=== PATIENT | male | born 1965 | race American Indian/Alaskan Native ===

== ENCOUNTER 2023-02-26 08:37 | Outpatient (AMB) | payer OTHER, SELFPAY ==
[2023-02-26 09:01] VITALS: BP 128/74; PULSE 77; RESP 13; TEMP 36.4; O2SAT 97; BMI 33.7
--- NOTE | 2023-02-26 09:01 | A.OFFPC_ITS ---
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 Accompanied by: Self / Same As Patient Allergies aspirin Adverse Reaction (Severe, Verified 02/26/23 09:13) Anaphylaxis Penicillins Adverse Reaction (Severe, Verified 02/26/23 09:13) Anaphylaxis Medication List - Last Reconciled 02/26/23 by Nayeli Petersen CNP amlodipine 10 mg PO DAILY docusate sodium 100 mg PO BID fluocinonide 0.05% topical fluvoxamine 100 mg PO BEDTIME glipizide ER mg PO BID hydrocortisone 2.5% appl topical ketoconazole 2% topical lisinopril 5 mg PO DAILY lorazepam 0.5 mg PO BID PRN metformin ER 1,000 mg PO BID multivitamin 1 tab PO DAILY olanzapine 20 mg PO BEDTIME ondansetron HCl 4 - 8 mg PO Q8H PRN oxybutynin chloride ER 10 mg PO DAILY psyllium husk (aspartame) 3.4 gram (Metamucil Fiber Singles) 1 packet PO DAILY PRN tamsulosin mg PO DAILY Tobacco use date assessed: 02/26/23 Dental Screening Dental Screen Date: 02/26/23 Did you have a dental visit in the last 12 months?: Yes Did you have a dental problem in the last 6 months where you did not have access to dental care?: No Was dental information given to patient?: Patient has dentist HPI HPI Comments History of Present Illness Details New patient Prior PCP:?[facility], Dr. Tyson Last office visit/CPE: About 2-3 months ago Last routine blood work including A1c: 2-3 months ago. He notes that his A1c was 6% Acute issue(s): Hypertension -He is on Amlodipine 10 mg daily and lis inopril 5mg daily Asthma -No treatment in the past 4-5 months Diabetes -He is on metformin 1000 mg twice daily and glipizide 10 mg twice daily Anxiety, schizophrenia -He is on fluvoxamine 100 mg daily at be dtime, lorazepoam 0.5 mg twice daily as needed, and olanzapine 20 mg daily at bedtime -He is followed by Dr. Yoly Munoz, [facility]. He is seen every 2-3 months. He also follows a therapist, telemedicine, once weekly BPH -He is on tamsulosin 0.4 mg daily Urinary incontinence (occasional) -He is on oxybutynin 10 mg daily Constipation -He is on Metamucil daily. He notes that he has never been followed by Gastroenterology Psoriasis and exzema (facial) -He is on topical hydrocortisone and ket oconazole He reports intermittent moderate sharp pain to his suprapubic region for the past 2 months. He notes associated constipation. Note vomiting or diarrhea. No recent nausea. PMHx: Diabetes, hypertension, hyperlipidemia, COPD, asthma, IBS, constipation, urinary incontinence psoriasis, eczema, anxiety, and schizophrenia SurgHx; FHx: None SocHx: Nonsmoker. Drinks alcohol occasionally. No recreational drugs. 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 1. Little interest or pleasure in doing things: not at all 2. Feeling down, depressed, or hopeless: several days 3. Trouble falling or staying asleep, or sleeping too much: several days 4. Feeling tired or having little energy: several days 5. Poor appetite or overeating: several days 6. Feeling bad about yourself - or that you are a failure or have let yourself or your family down: not at all 7. Trouble concentrating on things, such as reading the newspaper or watching television: not at all 8. Moving or speaking so slowly that other people could have noticed. Or the opposite - being so fidgety or restless that you have been moving around a lot more than usual: not at all 9. Thoughts that you would be better off or of hurting yourself in some way: not at all Total score: 4 Depression Screening Interpretation: Negative Depression Screening Done: Yes 85816 - PHQ-9 Billing: Yes Source: Developed by Drs. Jorge Caraballo, Izabela Bejarano, Biju Vaughn and colleagues, with an educational saba from [employer]. AUDIT C Alcohol Use Questionnaire (AUDIT-C) 1. How often do you have a drink containing alcohol?: 2-4 times a month 2. How many drinks containing alcohol do you have on a typical day when you are drinking?: 1 or 2 3. How often do you have six or more drinks on one occasion?: Never Total Score: 2 KARLO-7 AMB Questionnaire KARLO-7 Date KARLO - 7 assessed: 02/26/23 Feeling nervous, anxious, or on edge: 1 = Several days Not being able to stop or control worryin = Several days Worrying too much about different things: 0 = Not at all Trouble relaxin = Not at all Being so restless that it is hard to sit still: 0 = Not at all Becoming easily annoyed or irritable: 0 = Not at all Feeling afraid as if something awful might happen: 0 = Not at all Total KARLO-7 score (0-4 normal; 5-9 mild; 10-14 moderate; 15-21 severe): 2 Source: Developed by Drs. Jorge Caraballo, Izabela Bejarano, Biju Vaughn and colleagues, with an educational saba from [employer]. KARLO-7 Assessment Billing KARLO-7 Assessment Tool: KARLO-7 Assessment 75715 ACT Questionnaire In the past 4 weeks, how much of the time did your asthma keep you from getting as much done at work, school or at home?: A little of the time During the past 4 weeks, how often have you had shortness of breath?: Not at all During the past 4 weeks, how often did your asthma symptoms wake you up at night or earlier than usual in the morning?: Not at all During the past 4 weeks, how often have you had to use your rescue inhaler or nebulizer medication?: Not at all How would you rate your asthma control during the past 4 weeks?: Well controlled ACT Interpretation: Positive Score: 23 Review of Systems Const Details: Const Denies chills, Denies fatigue, Denies fever(s), Denies headache(s) and Denies weakness ENT Denies dizziness and Denies headache(s) Card Denies chest pain, Denies lightheadedness, Denies dyspnea and Denies other (Palpitations) Resp Denies cough, Denies dyspnea, Denies wheezing and Denies other ( shortness of breath) GI Reports as per HPI Denies hematuria and Denies dysuria Musc Denies abnormal gait, Denies myalgias, Denies arthralgias, Denies numbness and Denies tingling Skin/Breast Denies rash, Denies unusual bruising and Denies wounds Neuro Denies abnormal gait, Denies dizziness, Denies headache(s), Denies memory loss, Denies numbness, Denies Sensory deficit (Neuro), Denies tingling and Denies weakness Psych Denies anxiety, Denies depression, Denies memory loss Endo Denies cold intolerance, Denies fatigue, Denies heat intolerance, Denies polydipsia and Denies polyuria Aller/Immun Denies wheezing Physical exam (Primary Care) Vital Signs: Last Vital Signs Temp 97.6 F 02/26/23 09:01 Pulse 77 02/26/23 09:01 Resp 13 02/26/23 09:01 BP 128/74 02/26/23 09:01 Pulse Ox 97 02/26/23 09:01 Oxygen Delivery Method Room Air 02/26/23 09:01 BMI result Body Mass Index 33.7 Tobacco/Smoking Status: Tobacco use Status Tobacco use date assessed 02/26/23 02/26/23 09:11 Patient Tobacco Use Status Former Tobacco user 02/26/23 09:11 e-Cigarette/Vaping Use Never Used 02/26/23 09:11 PHQ-9: PHQ-9 Score PHQ-9: Total score 4 02/27/23 17:05 Depression Screening Interpretation: Negative Const Other: General: no acute distress and well developed Nutritional Appearance: well nourished Orientation/consciousness: patient oriented x3 HENMT Head: Yes normocephalic and Yes atraumatic Eyes General: appearance normal, both eyes and all related structures Pupils: Equal, round and reactive pupils present EOM: EOMs intact bilaterally Resp Effort & Inspection: normal respiratory effort Auscultation: clear to auscultation bilaterally Cardio Rate: regular rate Rhythm: regular rhythm Heart sounds: S1 normal heart sound present, S2 normal heart sound present, no gallops, no murmurs and no rubs GI Palpation (GI): No Abdominal aortic bruit present, Soft to palpation, tender suprapubic region, nondistended, No hepatosplenomegaly present and No Rebound tenderness present Auscultation: normal bowel sounds General: Yes no CVA tenderness Back/Spine/Pelvis Back: no CVA tenderness Cervical Spine: cervical ROM normal and No Cervical spine tenderness Thoracic/Lumbar Spine: thoraco-lumbar ROM normal, No pain with thoraco-lumbar ROM, No thoracic spinal tenderness and No lumbar spinal tenderness Extrem General: Yes normal to inspection, No edema and No calf tenderness Skin General: warm and dry. Normal skin color. Normal skin turgor Lesions: Skin tags and moles to face Rashes: no rashes Trauma: no lacerations or abrasions Wounds: no wounds Nails: normal Neuro General: patient oriented x3, gait normal and no focal neuro deficit Cranial nerves: Yes Equal, round and reactive pupils present Cognition (Neuro): normal cognition Gait exam (Neuro): Normal gait present Sensory Exam: No Sensory deficit (Neuro) Psych Appearance: grossly normal Affect: normal affect Attitude: cooperative Thought process: Normal thought process present Results AMB Hemoglobin A1c AMB Hemoglobin A1c 6.0 % Last Edit by Taylor Pineda MA on 02/26/23 09:28 Results Reviewed Results Reviewed: Laboratory Last Values Hgb A1c (Clinic) 6.0 % (4.0-6.0) 02/26/23 09:27 Assessment and Plan Assessment & Plan (1) High blood pressure: Code(s): I10 - Essential (primary) hypertension Plan: Blood pressure is 128/74, within goal of less than 130/80 Continue take lisinopril and amlodipine as prescribed Low-sodium diet encouraged Follow-up in 1 month for an extended physical exam Return sooner with symptoms or concerns Verbalized understanding and agreed with treatment plan (2) Diabetes: Code(s): E11.9 - Type 2 diabetes mellitus without complications Plan: A1c 6.0% today, within goal of less than 7.0% Continue to take metformin and glipizide as prescribed ADA diet and routine exercise encouraged Will recheck A1c in 3 months Verbalized understanding and agreed with treatment plan (3) High cholesterol: Code(s): E78.00 - Pure hypercholesterolemia, unspecified Plan: He notes that he had routine blood work done 2-3 months ago from his former PCP Will request health records, review labs, and make changes as needed Verbalized understanding and agreed with the plan (4) Anxiety: Code(s): F41.9 - Anxiety disorder, unspecified Plan: KARLO-7 and PHQ-9 scores are normal He reports controlled anxiety and schizophrenia symptoms on current treatment regimen Continue to take fluvoxamine, lorazepam, and olanzapine as prescribed Continue follow-up with psychiatrist and therapist as planned Return with worsening or new symptoms Verbalized understanding and agreed with treatment plan (5) Schizophrenia: Code(s): F20.9 - Schizophrenia, unspecified Plan: As above (6) COPD (chronic obstructive pulmonary disease): Code(s): J44.9 - Chronic obstructive pulmonary disease, unspecified Plan: No acute symptoms Follow-up with symptoms or concerns Verbalized understanding and agreed with the plan (7) Asthma: Code(s): J45.909 - Unspecified asthma, uncomplicated Plan: Well-controlled asthma No acute symptoms Follow-up with symptoms or concerns Verbalized understanding and agreed with plan (8) Abdominal pain: Code(s): R10.9 - Unspecified abdominal pain Plan: Reports intermittent moderate sharp pain to his suprapubic region for the past 2 months. He notes associated constipation History of IBS Suprapubic tenderness to palpation Currently on Metamucil Never been followed by Gastroenterology Continue with current treatment regimen Healthy diet including, fruits, vegetables, and fiber encouraged Referred to Gastroenterology Return with worsening or new symptoms Verbalized understanding and agreed with treatment plan (9) Chronic constipation: Code(s): K59.09 - Other constipation Plan: As above (10) IBS (irritable bowel syndrome): Code(s): K58.9 - Irritable bowel syndrome without diarrhea Plan: As above (11) Eczema: Code(s): L30.9 - Dermatitis, unspecified Plan: Reports facial eczema and psoriasis No current rash Continue to use topical hydrocortisone and ketoconazole as prescribed Follow-up with signs and symptoms or concerns Verbalized understanding and agreed with plan (12) Psoriasis: Code(s): L40.9 - Psoriasis, unspecified Plan: As above (13) BPH (benign prostatic hyperplasia): Code(s): N40.0 - Benign prostatic hyperplasia without lower urinary tract symptoms Plan: Reports BPH with associated in term urinary incontinence Continue to take tamsulosin and oxybutynin as prescribed Follow-up with worsening or new symptoms Verbalized understanding and agreed with treatment plan (14) Urinary incontinence: Code(s): R32 - Unspecified urinary incontinence Plan: As above Orders: Referrals Gastroenterology Referral R10.9 - Unspecified abdominal pain, K59.09 - Other constipation, K58.9 - Irritable bowel syndrome without diarrhea Medications: New blood sugar diagnostic (FreeStyle Lite Strips) As directed TID 100 ea 4RF diabetes blood-glucose meter (FreeStyle Lite Meter kit) As directed 1 ea 0RF diabetes lancets (FreeStyle Lancets) As directed 100 ea 4RF glipizide ER 10 mg PO BID Coding Level of Care Code New Pt Level 4 (05724) Diagnoses High blood pressure I10 Diabetes E11.9 High cholesterol E78.00 Anxiety F41.9 Schizophrenia F20.9 COPD (chronic obstructive pulmonary disease) J44.9 Asthma J45.909 Abdominal pain R10.9 Chronic constipation K59.09 IBS (irritable bowel syndrome) K58.9 Eczema L30.9 Psoriasis L40.9 BPH (benign prostatic hyperplasia) N40.0 Urinary incontinence R32 Additional Codes KARLO-7 Assessment Billing - KARLO-7 Assessment Tool: KARLO-7 Assessment [id number] ([id number])
== END 2023-02-26 09:51 | disposition home or self-care (01) ==
PROVIDERS: PCP Nurse Practitioner Family; Visit Provider Nurse Practitioner Family
DX: I10 Essential (primary) hypertension (principal); E11.620 Type 2 diabetes mellitus with diabetic dermatitis; F20.9 Schizophrenia, unspecified; J44.9 Chronic obstructive pulmonary disease, unspecified; E78.00 Pure hypercholesterolemia, unspecified; F41.9 Anxiety disorder, unspecified; L30.9 Dermatitis, unspecified; J45.909 Unspecified asthma, uncomplicated; R10.9 Unspecified abdominal pain; K59.09 Other constipation; K58.9 Irritable bowel syndrome, unspecified; L40.9 Psoriasis, unspecified
CPT/HCPCS: 83036; 99204

== ENCOUNTER 2023-04-11 10:08 | Outpatient (AMB) | payer OTHER, SELFPAY ==
--- NOTE | 2023-04-11 10:10 | A.OFFPC_ITS ---
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: No Accompanied by: Self / Same As Patient Allergies aspirin Adverse Reaction (Severe, Verified 04/11/23 10:27) Anaphylaxis Penicillins Adverse Reaction (Severe, Verified 04/11/23 10:27) Anaphylaxis Medication List - Last Reconciled 04/11/23 by Nayeli Petersen CNP amlodipine 10 mg PO DAILY blood sugar diagnostic (FreeStyle Lite Strips) As directed TID blood-glucose meter (FreeStyle Lite Meter kit) As directed docusate sodium 100 mg PO BID fluocinonide 0.05% topical fluvoxamine 100 mg PO BEDTIME glipizide ER 10 mg PO BID hydrocortisone 2.5% appl topical ketoconazole 2% topical lancets (FreeStyle Lancets) As directed lisinopril 5 mg PO DAILY lorazepam 0.5 mg PO BID PRN metformin ER 1,000 mg PO BID multivitamin 1 tab PO DAILY olanzapine 20 mg PO BEDTIME ondansetron HCl 4 - 8 mg PO Q8H PRN oxybutynin chloride ER 10 mg PO DAILY psyllium husk (aspartame) 3.4 gram (Metamucil Fiber Singles) 1 packet PO DAILY PRN tamsulosin mg PO DAILY Tobacco use date assessed: 04/11/23 Dental Screening Dental Screen Date: 04/11/23 Did you have a dental visit in the last 12 months?: Yes Did you have a dental problem in the last 6 months where you did not have access to dental care?: No Was dental information given to patient?: Patient has dentist HPI HPI Comments History of Present Illness Details 57-year-old male presents for an extende d physical exam He has past medical history significant for Diabetes, hypertension, hyperlipidemia, COPD, asthma, IBS, constipation, urinary incontinence psoriasis, eczema, anxiety, and schizophrenia He admits to taking his medications as prescribed without adverse reactions He notes that he had his 4th monthly chemotherapy for skin cancer that was removed from his left forearm last last summer He reports burning and frequent urination, and cloudy urine for the past 1 month. No hematuria or discharge with urination. No abdominal pain He states that he is followed by [facility], last visit was about a month ago Recent lab results reviewed from [facility]. CBC, CMP, and TSH/T4 levels on 04/08/2023 were unremarkable. Last lipid and PSA levels were done almost a year ago Last colonoscopy was in June 2017 per [facility] medical record: Ascending polyp, pedunculated sigmoid polyp, hyperplastic appearing rectal polyp, sigmoid diverticulosis and hemorrhoids, recommended repeat in 3 years. He notes he is up-to-date on the Shingrix vaccines He has not had the flu vaccine. 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 1. Little interest or pleasure in doing things: several days 2. Feeling down, depressed, or hopeless: several days 3. Trouble falling or staying asleep, or sleeping too much: several days 4. Feeling tired or having little energy: more than half the days 5. Poor appetite or overeating: several days 6. Feeling bad about yourself - or that you are a failure or have let yourself or your family down: not at all 7. Trouble concentrating on things, such as reading the newspaper or watching television: several days 8. Moving or speaking so slowly that other people could have noticed. Or the opposite - being so fidgety or restless that you have been moving around a lot more than usual: several days 9. Thoughts that you would be better off or of hurting yourself in some way: not at all Total score: 8 Depression Screening Interpretation: Positive Depression Screening Done: Yes 26534 - PHQ-9 Billing: Yes Source: Developed by Drs. Jorge Caraballo, Izabela Bejarano, Biju Vaughn and colleagues, with an educational saba from [employer]. KARLO-7 AMB Questionnaire KARLO-7 Date KARLO - 7 assessed: 04/11/23 Feeling nervous, anxious, or on edge: 2 = More than half the days Not being able to stop or control worryin = Several days Worrying too much about different things: 1 = Several days Trouble relaxin = Several days Being so restless that it is hard to sit still: 1 = Several days Becoming easily annoyed or irritable: 2 = More than half the days Feeling afraid as if something awful might happen: 1 = Several days Total KARLO-7 score (0-4 normal; 5-9 mild; 10-14 moderate; 15-21 severe): 9 Source: Developed by Drs. Jorge Caraballo, Izabela Bejarano, Biju Vaughn and colleagues, with an educational saba from [employer]. KARLO-7 Assessment Billing KARLO-7 Assessment Tool: KARLO-7 Assessment 80045 ACT Questionnaire In the past 4 weeks, how much of the time did your asthma keep you from getting as much done at work, school or at home?: None of the time During the past 4 weeks, how often have you had shortness of breath?: 3-6 times a week During the past 4 weeks, how often did your asthma symptoms wake you up at night or earlier than usual in the morning?: Not at all During the past 4 weeks, how often have you had to use your rescue inhaler or nebulizer medication?: Not at all How would you rate your asthma control during the past 4 weeks?: Well controlled ACT Interpretation: Positive Score: 22 Review of Systems Const Details: Denies chills, Denies fatigue, Denies fever(s), Denies headache(s) and Denies weakness HEENT Denies change in vision, Denies dizziness, Denies headache(s), Denies hearing loss, Denies nasal congestion, Denies sinus pain, Denies sinus pressure and Denies sore throat Card Denies chest pain, Denies lightheadedness, Denies dyspnea and Denies other (palpitations) Resp Denies cough, Denies dyspnea and Denies wheezing GI Denies abdominal pain, Denies melena, Denies hematochezia, Denies change in bowel habits, Denies dyspepsia and Denies nausea Reports as per HPI Musc Denies abnormal gait, Denies myalgias, Denies arthralgias, Denies numbness and Denies tingling Skin/Breast Denies rash, Denies unusual bruising and Denies wounds Neuro Denies abnormal gait, Denies dizziness, Denies headache(s), Denies memory loss, Denies numbness, Denies Sensory deficit (Neuro), Denies tingling and Denies weakness Psych Denies anxiety, Denies depression and Denies memory loss Endo Denies cold intolerance, Denies fatigue, Denies heat intolerance, Denies polydipsia and Denies polyuria Babatunde/Lymph Denies easy bleeding and Denies easy bruising Aller/Immun Denies wheezing Physical exam (Primary Care) Vital Signs: Last Vital Signs Temp 97.3 F 04/11/23 10:11 Pulse 83 04/11/23 10:11 Resp 13 04/11/23 10:11 BP 112/80 04/11/23 10:11 Pulse Ox 96 04/11/23 10:11 Oxygen Delivery Method Room Air 04/11/23 10:11 BMI result Body Mass Index 32.4 Tobacco/Smoking Status: Tobacco use Status Tobacco use date assessed 04/11/23 04/11/23 10:23 Patient Tobacco Use Status Former Tobacco user 04/11/23 10:23 e-Cigarette/Vaping Use Never Used 04/11/23 10:23 PHQ-9: PHQ-9 Score PHQ-9: Total score 8 04/11/23 10:23 Depression Screening Interpretation: Positive Const Other: General: no acute distress, well developed, alert and awake Nutritional Appearance: well nourished Orientation/consciousness: patient oriented x3 HENMT Head: Yes normocephalic and Yes atraumatic Ears: hearing grossly normal bilaterally and TM's normal bilaterally General nose exam: Normal external nose present and Normal nares present Mouth: Normal oral and palatal mucosa present and moist mucous membranes Teeth and gingiva: dentition normal Throat: Yes oropharynx normal Eyes Pupils: Equal, round and reactive pupils present and Pupil accommodation reflex normal EOM: EOMs intact bilaterally Neck Neck: Yes normal visual inspection, Yes no lymphadenopathy and Yes trachea midline Thyroid: Thyroid normal Carotids: no bruits Lymphatic: no lymphadenopathy noted Chest Chest palpation & inspection: normal inspection of the chest Resp Effort & Inspection: normal respiratory effort Auscultation: clear to auscultation bilaterally Cardio Rate: regular rate Rhythm: regular rhythm Heart sounds: S1 normal heart sound present, S2 normal heart sound present, no gallops, no murmurs and no rubs Bruits: no abdominal aortic bruits and no carotid bruits GI Palpation (GI): No Abdominal aortic bruit present, Soft to palpation, nontender, No hepatosplenomegaly present and No Rebound tenderness present Auscultation: normal bowel sounds General: Yes no CVA tenderness Back/Spine/Pelvis Back: no CVA tenderness Cervical Spine: cervical ROM normal and No Cervical spine tenderness Thoracic/Lumbar Spine: thoraco-lumbar ROM normal, No pain with thoraco-lumbar ROM, No thoracic spinal tenderness and No lumbar spinal tenderness Skin General: warm and dry. Normal skin color. Normal skin turgor Lesions: Keloids to upper anterior and posterior torso Rashes: no rashes Trauma: no lacerations or abrasions Wounds: no wounds Nails: normal Neuro General: patient oriented x3, gait normal and CN's II-XI intact bilaterally Cranial nerves: Yes Equal, round and reactive pupils present Cognition (Neuro): normal cognition Gait exam (Neuro): Normal gait present Motor exam (neuro): 5/5 motor strength present throughout Sensory Exam: No Sensory deficit (Neuro) Deep tendon reflexes (DTR's): Right patellar reflex intensity grade: 2+ and Left patellar reflex intensity grade: 2+ Extrem General: Yes normal to inspection, No edema and No calf tenderness Psych Appearance: grossly normal Affect: normal affect Attitude: cooperative Thought process: Normal thought process present Results AMB Urinalysis Dipstick UR Leukocytes Large Last Edit by Taylor Pineda MA on 04/11/23 11:10 UR Nitrite Negative Last Edit by Taylor Pineda MA on 04/11/23 11:10 UR Urobilinogen Normal Last Edit by Taylor Pineda MA on 04/11/23 11:10 UR Protein Trace Last Edit by Taylor Pineda MA on 04/11/23 11:10 UR Ph 7.5 Last Edit by Taylor Pineda MA on 04/11/23 11:10 UR Blood Negative Last Edit by Taylor Pineda MA on 04/11/23 11:10 UR Specific [place] 1.015 Last Edit by Taylor Pineda MA on 04/11/23 11:1 0 UR Ketone Negative Last Edit by Taylor Pineda MA on 04/11/23 11:10 UR Bilirubin Negative Last Edit by Taylor Pineda MA on 04/11/23 11:10 UR Glucose Negative Last Edit by Taylor Pineda MA on 04/11/23 11:10 Assessment and Plan Assessment & Plan (1) Normal physical examination, routine: Code(s): Z00.00 - Encounter for general adult medical examination without abnormal findings Plan: No significant physical restrictions or limitations noted Continue current treatment regimen Will check lipid panel and PSA levels. Advised to fast for 10-12 hours, may drink water only and get blood work done a few days before his next visit Follow-up with Urology, Oncology, Dermatology, and Psychiatry as planned Follow-up in 2 months for diabetes, hypertension, labs review Return sooner with symptoms or concerns Verbalized understanding and agreed with treatment plan (2) UTI (urinary tract infection): Code(s): N39.0 - Urinary tract infection, site not specified Plan: Burning and frequent urination, and cloudy urine x 1 month No abdominal pain or CVA tenderness Urine dip is positive for leukocytes, no nitrites or rbc Likely UTI Nitrofurantoin and Pyridium as prescribed Adequate hydration encouraged Will send urine sample to the lab for culture/sensitivity Follow-up with worsening or new symptoms Verbalized understanding and agreed with treatment plan (3) Dysuria: Code(s): R30.0 - Dysuria Plan: As above (4) Urinary frequency: Code(s): R35.0 - Frequency of micturition Plan: As above Urinary frequency may also be attributed to BPH Tamsulosin as prescribed (5) Colon cancer screening: Code(s): Z12.11 - Encounter for screening for malignant neoplasm of colon Plan: Last colonoscopy was in June 2017 per [facility] medical record: Ascending polyp, pedunculated sigmoid polyp, hyperplastic appearing rectal polyp, sigmoid diverticulosis and hemorrhoids, recommended repeat in 3 years Referred to [facility] gastroenterology for colonoscopy Orders: Orders UA CC w/rflx Micro + Cult Today R30.0 - Dysuria AMB Urinalysis Dipstick Today R30.0 - Dysuria Lipid Panel Today E78.00 - Pure hypercholesterolemia, unspecified, Z00.00 - Encounter for general adult medical examination without abnormal findings PSA, Ultra Sensitive Today N40.0 - Benign prostatic hyperplasia without lower urinary tract symptoms, Z00.00 - Encounter for general adult medical examination without abnormal findings Referrals Gastroenterology Referral Z12.11 - Encounter for screening for malignant neoplasm of colon Medications: New phenazopyridine (Pyridium) 100 mg PO TID 2 days PRN 6 tabs 0RF pain nitrofurantoin macrocrystal must administer with a meal/food 100 mg PO Q12H 5 days 10 caps 0RF Coding Level of Care Code Est Pt Prev Care 40-64y(93380) Diagnoses Normal physical examination, routine Z00.00 UTI (urinary tract infection) N39.0 Dysuria R30.0 Urinary frequency R35.0 Colon cancer screening Z12.11 Additional Codes KARLO-7 Assessment Billing - KARLO-7 Assessment Tool: KARLO-7 Assessment 02535 ([id number])
[2023-04-11 10:11] VITALS: BP 112/80; PULSE 83; RESP 13; TEMP 36.3; O2SAT 96; BMI 32.4
== END 2023-04-11 11:21 | disposition home or self-care (01) ==
PROVIDERS: PCP Nurse Practitioner Family; Visit Provider Nurse Practitioner Family
DX: Z00.00 Encounter for general adult medical examination without abnormal findings (principal); N39.0 Urinary tract infection, site not specified; R30.0 Dysuria; R35.0 Frequency of micturition; Z12.11 Encounter for screening for malignant neoplasm of colon
CPT/HCPCS: 99396

== ENCOUNTER 2023-04-11 10:57 | Outpatient (REF) | payer OTHER, SELFPAY ==
[2023-04-11 14:19] LABS: Appearance Urine Cloudy; Color Urine Yellow; Glucose Urine UA Negative (Negative); Leukocyte Esterase Urine Large (3+) (Negative); Nitrite Urine Negative (Negative); PH 7.5 (5.0-9.0); Specific Gravity - Urine 1.015 (1.005-1.025); UMIC TRIGGER UACC YES; Urine Blood Trace (Negative); Urine Ketones Negative (Negative); Urine Protein Trace mg/dL (Neg-Trace)
[2023-04-11 14:21] LABS: Bacteria Urine Trace (None Seen); Hyaline Casts Urine 0-2 /LPF (0-2); RBC Urine 0-2 /HPF (0-2); Squamous Epithelial Cell Urine 0-2 /HPF (0-2); UACC Culture Trigger YES; WBC Urine >50 /HPF (0-5)
== END 2023-04-11 10:58 | disposition home or self-care (01) ==
LOC: HO.LAB 10:57
PROVIDERS: Visit Provider Nurse Practitioner Family
DX: R30.0 Dysuria (principal)
CPT/HCPCS: 81001; 81003; 87086; 87088; 87186

== ENCOUNTER 2023-06-23 13:20 | Outpatient (AMB) | payer OTHER, SELFPAY ==
[2023-06-23 13:31] VITALS: BP 118/80; PULSE 70; RESP 14; O2SAT 96; BMI 31.3
--- NOTE | 2023-06-23 13:31 | A.OFFPC_ITS ---
Vital Signs 06/23/23 13:31 Height 5 ft 10.5 in Weight 221 lb 4 oz BMI 31.3 BP 118/80 Blood Pressure Location Rt brachial Position Sitting Respiration 14 Pulse 70 Pulse Source Pulse Oximeter Pulse Oximetry (%) 96 Oxygen Delivery Method Room Air Intake Visit Reasons: HTN, Labs, Diabetes Intake Note: Patient is here to discuss HTN, diabetes and labs. Patient reports concerns for constipation and burning when urinating. 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 Accompanied by: Self / Same As Patient Allergies aspirin Adverse Reaction (Severe, Verified 06/23/23 13:39) Anaphylaxis Penicillins Adverse Reaction (Severe, Verified 06/23/23 13:39) Anaphylaxis Medication List - Last Reviewed 06/23/23 by Fay Erickson CMA amlodipine 10 mg PO DAILY blood sugar diagnostic (FreeStyle Lite Strips) As directed TID blood-glucose meter (FreeStyle Lite Meter kit) As directed docusate sodium 100 mg PO BID fluocinonide 0.05% topical fluvoxamine 100 mg PO BEDTIME glipizide ER 10 mg PO BID hydrocortisone 2.5% appl topical ketoconazole 2% topical lancets (FreeStyle Lancets) As directed lisinopril 5 mg PO DAILY lorazepam 0.5 mg PO BID PRN metformin ER 1,000 mg PO BID multivitamin 1 tab PO DAILY olanzapine 20 mg PO BEDTIME ondansetron HCl 4 - 8 mg PO Q8H PRN oxybutynin chloride ER 10 mg PO DAILY phenazopyridine (Pyridium) 100 mg PO TID PRN 2 days psyllium husk (aspartame) 3.4 gram (Metamucil Fiber Singles) 1 packet PO DAILY PRN tamsulosin mg PO DAILY Tobacco use date assessed: 04/11/23 Dental Screening Dental Screen Date: 04/11/23 HPI HPI Comments History of Present Illness Details 57-year-old male presents for hypertensi on, diabetes, and recent labs review follow-up. He admits to taking his medications as prescribed without adverse reactions. He has not gotten lipid panel and PSA blood work done. He reports intermittent burning with urination. No blood or discharge with urination. No burning sensation with urination today. He is followed by [facility]. He thinks he has a follow-up appointment with urology but is unsure. He was treated for UTI with Macrobid earlier this month; he states that he completed the treatment with relief of his symptoms. He admits to following up with his psychiatrist routinely. 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 Jorge Caraballo, Izabela Bejarano, Biju Vaughn and colleagues, with an educational saba from [employer]. Review of Systems Const Details: Const Denies chills, Denies fatigue, Denies fever(s), Denies headache(s) and Denies weakness ENT Denies dizziness and Denies headache(s) Card Denies chest pain, Denies lightheadedness, Denies dyspnea and Denies other (Palpitations) Resp Denies cough, Denies dyspnea, Denies wheezing and Denies other ( shortness of breath) GI Denies abdominal pain, Denies melena, Denies hematochezia, Denies change in bowel habits, Denies dyspepsia and Denies nausea Reports as per HPI Musc Denies abnormal gait, Denies myalgias, Denies arthralgias, Denies numbness and Denies tingling Skin/Breast Denies rash, Denies unusual bruising and Denies wounds Neuro Denies abnormal gait, Denies dizziness, Denies headache(s), Denies memory loss, Denies numbness, Denies Sensory deficit (Neuro), Denies tingling and Denies weakness Psych Denies anxiety, Denies depression, Denies memory loss Endo Denies cold intolerance, Denies fatigue, Denies heat intolerance, Denies polydipsia and Denies polyuria Aller/Immun Denies wheezing Physical exam (Primary Care) Tobacco/Smoking Status: Tobacco use Status Tobacco use date assessed 04/11/23 06/23/23 13:32 Patient Tobacco Use Status Former Tobacco user 06/23/23 13:32 e-Cigarette/Vaping Use Never Used 06/23/23 13:32 Const Other: General: no acute distress and well developed Nutritional Appearance: well nourished Orientation/consciousness: patient oriented x3 HENMT Head: Yes normocephalic and Yes atraumatic Eyes General: appearance normal, both eyes and all related structures Pupils: Equal, round and reactive pupils present EOM: EOMs intact bilaterally Resp Effort & Inspection: normal respiratory effort Auscultation: clear to auscultation bilaterally Cardio Rate: regular rate Rhythm: regular rhythm Heart sounds: S1 normal heart sound present, S2 normal heart sound present, no gallops, no murmurs and no rubs GI Palpation (GI): No Abdominal aortic bruit present, Soft to palpation, nontender, No hepatosplenomegaly present and No Rebound tenderness present Auscultation: normal bowel sounds General: Yes no CVA tenderness Back/Spine/Pelvis Back: no CVA tenderness Cervical Spine: cervical ROM normal and No Cervical spine tenderness Thoracic/Lumbar Spine: thoraco-lumbar ROM normal, No pain with thoraco-lumbar ROM, No thoracic spinal tenderness and No lumbar spinal tenderness Extrem General: Yes normal to inspection, No edema and No calf tenderness Skin General: warm and dry. Normal skin color. Normal skin turgor Neuro General: patient oriented x3, gait normal and no focal neuro deficit Cranial nerves: Yes Equal, round and reactive pupils present Cognition (Neuro): normal cognition Gait exam (Neuro): Normal gait present Sensory Exam: No Sensory deficit (Neuro) Psych Appearance: grossly normal Affect: normal affect Attitude: cooperative Thought process: Normal thought process present Results AMB Hemoglobin A1c AMB Hemoglobin A1c 5.8 % Last Edit by Fay Erickson CMA on 06/23/23 13:48 AMB Urinalysis Dipstick UR Leukocytes Moderate Last Edit by Fay Erickson CMA on 06/23/23 13:56 UR Nitrite Negative Last Edit by Fay Erickson CMA on 06/23/23 13: 56 UR Urobilinogen Normal Last Edit by Fay Erickson, SOFT METALS ENGRAVER HAND on 06/23/23 1 3:56 UR Protein Trace Last Edit by Fay Erickson, SOFT METALS ENGRAVER HAND on 06/23/23 13:56 UR Ph 6.0 Last Edit by Fay Erickson, SOFT METALS ENGRAVER HAND on 06/23/23 13:56 UR Blood Negative Last Edit by aFy Erickson, SOFT METALS ENGRAVER HAND on 06/23/23 13:56 UR Specific [place] 1.020 Last Edit by Fay Erickson, SOFT METALS ENGRAVER HAND on 13:56 UR Ketone Negative Last Edit by Fay Erickson, SOFT METALS ENGRAVER HAND on 06/23/23 13:5 6 UR Bilirubin Negative Last Edit by Fay Erickson, CARLO on 06/23/23 13:56 UR Glucose Negative Last Edit by Fay Erickson, CARLO on 06/23/23 13: 56 Assessment and Plan Assessment & Plan (1) High blood pressure: Code(s): I10 - Essential (primary) hypertension Plan: Blood pressure is 112/80, slightly above goal of less than 130/80 Continue to take amlodipine and lisinopril as prescribed Low-sodium diet encouraged Advised to get lipid panel and PSA blood work done as soon as possible. Will make changes as needed Follow-up in 3 months or return sooner with symptoms or concerns Verbalized understanding and agreed with treatment plan (2) Diabetes: Code(s): E11.9 - Type 2 diabetes mellitus without complications Plan: His A1c today is 5.8%, within goal of less than 7.0%. Previous A1c was 6.0% Continue to take glipizide 10 mg twice daily and metformin ER 1000 mg twice daily ADA diet and routine exercise encouraged Follow-up in 3 months Verbalized understanding and agreed with treatment plan (3) Burning with urination: Code(s): R30.0 - Dysuria Plan: Reports intermittent burning with urination. No acute symptoms at this time. He was treated for UTI with Macrobid earlier this month UA revealed leukocyte, no nitrite or RBCs Adequate hydration encouraged Will send urine to the lab for culture and sensitivity. Will make changes as needed Encouraged to call and schedule an appointment with his urologist Follow-up with worsening or new symptoms Verbalized understanding and agreed with treatment plan Orders: Orders AMB Hemoglobin A1c Today E11.9 - Type 2 diabetes mellitus without complications AMB Urinalysis Dipstick Today R30.0 - Dysuria UA CC w/rflx Micro + Cult Today R30.0 - Dysuria Medications: Discontinued nitrofurantoin macrocrystal must administer with a meal/food Discontinued Reason: Patient no longer taking 100 mg PO Q12H 5 days 10 caps 0RF Coding Level of Care Code Est Pt Level 4 (49448) Diagnoses High blood pressure I10 Diabetes E11.9 Burning with urination R30.0
== END 2023-06-23 14:04 | disposition home or self-care (01) ==
PROVIDERS: PCP Nurse Practitioner Family; Visit Provider Nurse Practitioner Family
DX: I10 Essential (primary) hypertension (principal); E11.9 Type 2 diabetes mellitus without complications; R30.0 Dysuria
CPT/HCPCS: 81002; 83036; 99214

== ENCOUNTER 2023-06-23 14:07 | Outpatient (REF) | payer OTHER, SELFPAY ==
[2023-06-24 12:08] LABS: Appearance Urine Turbid; Color Urine Yellow; Glucose Urine UA Negative (Negative); Leukocyte Esterase Urine Moderate (2+) (Negative); Nitrite Urine Negative (Negative); PH 5.5 (5.0-9.0); UMIC TRIGGER UACC YES; Urine Blood Negative (Negative); Urine Ketones Negative (Negative); Urine Protein Trace mg/dL (Neg-Trace)
[2023-06-24 12:17] LABS: Bacteria Urine None Seen (None Seen); Hyaline Casts Urine 0-2 /LPF (0-2); RBC Urine 0-2 /HPF (0-2); Squamous Epithelial Cell Urine 0-2 /HPF (0-2); UACC Culture Trigger YES; WBC Urine >50 /HPF (0-5)
== END 2023-06-23 14:08 | disposition home or self-care (01) ==
LOC: HO.LAB 14:07
PROVIDERS: Visit Provider Nurse Practitioner Family
DX: R30.0 Dysuria (principal); E11.9 Type 2 diabetes mellitus without complications
CPT/HCPCS: 81001; 81003; 87086; 87088; 87186

== ENCOUNTER 2023-09-26 10:29 | Outpatient (AMB) | payer OTHER, SELFPAY ==
--- NOTE | 2023-09-26 10:33 | A.OFFPC_ITS ---
Vital Signs 09/26/23 10:39 Height 5 ft 5 in Weight 223 lb 4 oz BMI 37.1 BP 118/82 Blood Pressure Location Rt brachial Position Sitting Respiration 20 Pulse 72 Pulse Source Pulse Oximeter Temp 98.0 F Temp Source Oral Pulse Oximetry (%) 97 Oxygen Delivery Method Room Air Intake Visit Reasons: HTN, HLD, DM Intake Note: patient here for follow up on HTN, HLD, DM. [facility] Required: No Allergies aspirin Adverse Reaction (Severe, Verified 09/26/23 10:48) Anaphylaxis Penicillins Adverse Reaction (Severe, Verified 09/26/23 10:48) Anaphylaxis Medication List - Last Reconciled 09/26/23 by Nayeli Petersen CNP amlodipine 10 mg PO DAILY blood sugar diagnostic (FreeStyle Lite Strips) As directed TID blood-glucose meter (FreeStyle Lite Meter kit) As directed docusate sodium 100 mg PO BID fluocinonide 0.05% topical fluvoxamine 100 mg PO BEDTIME glipizide ER 10 mg PO BID hydrocortisone 2.5% appl topical ketoconazole 2% topical lancets (FreeStyle Lancets) As directed lisinopril 5 mg PO DAILY lorazepam 0.5 mg PO BID PRN metformin ER 1,000 mg PO BID multivitamin 1 tab PO DAILY olanzapine 20 mg PO BEDTIME ondansetron HCl 4 - 8 mg PO Q8H PRN oxybutynin chloride ER 10 mg PO DAILY tamsulosin mg PO DAILY Tobacco use date assessed: 09/26/23 Dental Screening Dental Screen Date: 09/26/23 Did you have a dental visit in the last 12 months?: Yes Did you have a dental problem in the last 6 months where you did not have access to dental care?: No Was dental information given to patient?: Patient has dentist HPI HPI Comments History of Present Illness Details 58-year-old male presents for hypertensi on, diabetes, and hyperlipidemia follow-up He admits to taking his medications as prescribed without adverse reactions He notes that he continues to see his therapist and psychiatrist He states that he generally eats healthy and sleeps well. 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 1. Little interest or pleasure in doing things: not at all 2. Feeling down, depressed, or hopeless: not at all 3. Trouble falling or staying asleep, or sleeping too much: several days 4. Feeling tired or having little energy: several days 5. Poor appetite or overeating: not at all 6. Feeling bad about yourself - or that you are a failure or have let yourself or your family down: not at all 7. Trouble concentrating on things, such as reading the newspaper or watching television: several days 8. Moving or speaking so slowly that other people could have noticed. Or the opposite - being so fidgety or restless that you have been moving around a lot more than usual: several days 9. Thoughts that you would be better off or of hurting yourself in some way: not at all Total score: 4 Depression Screening Interpretation: Negative Depression Screening Done: Yes 30224 - PHQ-9 Billing: Yes Source: Developed by Drs. Jorge Caraballo, Izabela Bejarano, Biju Vaughn and colleagues, with an educational saba from [employer]. AUDIT C Alcohol Use Questionnaire (AUDIT-C) 1. How often do you have a drink containing alcohol?: 4 or more times a week 2. How many drinks containing alcohol do you have on a typical day when you are drinking?: 1 or 2 3. How often do you have six or more drinks on one occasion?: Never Total Score: 4 KARLO-7 AMB Questionnaire KARLO-7 Date KARLO - 7 assessed: 04/11/23 Source: Developed by Drs. Jorge Caraballo, Izabela Bejarano, Biju Vaughn and colleagues, with an educational saba from [employer]. ACT Questionnaire In the past 4 weeks, how much of the time did your asthma keep you from getting as much done at work, school or at home?: All of the time During the past 4 weeks, how often have you had shortness of breath?: Not at all During the past 4 weeks, how often did your asthma symptoms wake you up at night or earlier than usual in the morning?: Not at all During the past 4 weeks, how often have you had to use your rescue inhaler or nebulizer medication?: Not at all How would you rate your asthma control during the past 4 weeks?: Completely controlled Score: 21 Review of Systems Const Details: Const Denies chills, Denies fatigue, Denies fever(s), Denies headache(s) and Denies weakness ENT Denies dizziness and Denies headache(s) Card Denies chest pain, Denies lightheadedness, Denies dyspnea and Denies other (Palpitations) Resp Denies cough, Denies dyspnea, Denies wheezing and Denies other ( shortness of breath) GI Denies abdominal pain, Denies melena, Denies hematochezia, Denies change in bowel habits, Denies dyspepsia and Denies nausea Denies hematuria and Denies dysuria Musc Denies abnormal gait, Denies myalgias, Denies arthralgias, Denies numbness and Denies tingling Skin/Breast Denies rash, Denies unusual bruising and Denies wounds Neuro Denies abnormal gait, Denies dizziness, Denies headache(s), Denies memory loss, Denies numbness, Denies Sensory deficit (Neuro), Denies tingling and Denies weakness Psych Denies anxiety, Denies depression, Denies memory loss Endo Denies cold intolerance, Denies fatigue, Denies heat intolerance, Denies polydipsia and Denies polyuria Aller/Immun Denies wheezing Physical exam (Primary Care) Tobacco/Smoking Status: Tobacco use Status Tobacco use date assessed 04/11/23 09/26/23 10:36 Patient Tobacco Use Status Former Tobacco user 09/26/23 10:36 e-Cigarette/Vaping Use Never Used 09/26/23 10:36 Depression Screening Interpretation: Negative Const Other: General: no acute distress and well developed Nutritional Appearance: well nourished Orientation/consciousness: patient oriented x3 HENMT Head: Yes normocephalic and Yes atraumatic Eyes General: appearance normal, both eyes and all related structures Pupils: Equal, round and reactive pupils present EOM: EOMs intact bilaterally Resp Effort & Inspection: normal respiratory effort Auscultation: clear to auscultation bilaterally Cardio Rate: regular rate Rhythm: regular rhythm Heart sounds: S1 normal heart sound present, S2 normal heart sound present, no gallops, no murmurs and no rubs GI Palpation (GI): No Abdominal aortic bruit present, Soft to palpation, nontender, No hepatosplenomegaly present and No Rebound tenderness present Auscultation: normal bowel sounds General: Yes no CVA tenderness Back/Spine/Pelvis Back: no CVA tenderness Cervical Spine: cervical ROM normal and No Cervical spine tenderness Thoracic/Lumbar Spine: thoraco-lumbar ROM normal, No pain with thoraco-lumbar ROM, No thoracic spinal tenderness and No lumbar spinal tenderness Extrem General: Yes normal to inspection, No edema and No calf tenderness Skin General: warm and dry. Normal skin color. Normal skin turgor Neuro General: patient oriented x3, gait normal and no focal neuro deficit Cranial nerves: Yes Equal, round and reactive pupils present Cognition (Neuro): normal cognition Gait exam (Neuro): Normal gait present Sensory Exam: No Sensory deficit (Neuro) Psych Appearance: grossly normal Affect: normal affect Attitude: cooperative Thought process: Normal thought process present Results AMB Hemoglobin A1c AMB Hemoglobin A1c 5.9 % Last Edit by Sharon Gerard on 09/26/23 11:00 Assessment and Plan Assessment & Plan (1) Diabetes: Code(s): E11.9 - Type 2 diabetes mellitus without complications Plan: A1c today is 5.9%, within goal of less than 7.0%. Previous A1c was 5.8% Continue current treatment regimen ADA diet and routine exercise encouraged Follow-up in 3 months or sooner with symptoms or concerns Verbalized understanding and agreed with the treatment plan (2) High blood pressure: Code(s): I10 - Essential (primary) hypertension Plan: Blood pressure is 118/82, slightly above goal of less than 130/80 Continue current treatment regimen Low-sodium diet encouraged Follow-up in 3 months Verbalized understanding and agreed with the treatment plan (3) High cholesterol: Code(s): E78.00 - Pure hypercholesterolemia, unspecified Plan: He has not gotten lipid panel blood work done as planned Encouraged to get fasting blood work done as planned. Will review results and make changes as needed Verbalized understanding and agreed with the plan Orders: Orders Microalbumin, Random (w Creat) Today E11.9 - Type 2 diabetes mellitus without complications AMB Hemoglobin A1c Today Z13.9 - Encounter for screening, unspecified Coding Level of Care Code Est Pt Level 4 (18053) Complex EM visit Add On G2211 Diagnoses Diabetes E11.9 High blood pressure I10 High cholesterol E78.00
[2023-09-26 10:39] VITALS: BP 118/82; PULSE 72; RESP 20; TEMP 36.7; O2SAT 97; BMI 37.1
== END 2023-09-26 11:06 | disposition home or self-care (01) ==
PROVIDERS: PCP Nurse Practitioner Family; Visit Provider Nurse Practitioner Family
DX: E11.9 Type 2 diabetes mellitus without complications (principal); I10 Essential (primary) hypertension; E78.00 Pure hypercholesterolemia, unspecified; Z13.9 Encounter for screening, unspecified
CPT/HCPCS: 83036; 99214; G2211

== ENCOUNTER 2023-12-29 09:09 | Outpatient (AMB) | payer OTHER, SELFPAY ==
--- NOTE | 2023-12-29 09:45 | A.OFFPC_ITS ---
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 Allergies aspirin Adverse Reaction (Severe, Verified 12/29/23 10:24) Anaphylaxis Penicillins Adverse Reaction (Severe, Verified 12/29/23 10:24) Anaphylaxis Medication List - Last Reconciled 12/29/23 by Nayeli Petersen CNP amlodipine 10 mg PO DAILY blood sugar diagnostic (FreeStyle Lite Strips) As directed TID blood-glucose meter (FreeStyle Lite Meter kit) As directed docusate sodium 100 mg PO BID fluocinonide 0.05% topical fluvoxamine 100 mg PO BEDTIME glipizide ER 10 mg PO BID hydrocortisone 2.5% appl topical ketoconazole 2% topical lancets (FreeStyle Lancets) As directed lisinopril 5 mg PO DAILY lorazepam 0.5 mg PO BID PRN metformin ER 1,000 mg PO BID multivitamin 1 tab PO DAILY olanzapine 20 mg PO BEDTIME ondansetron HCl 4 - 8 mg PO Q8H PRN oxybutynin chloride ER 10 mg PO DAILY tamsulosin mg PO DAILY Tobacco use date assessed: 12/29/23 Dental Screening Dental Screen Date: 12/29/23 Did you have a dental visit in the last 12 months?: Yes Did you have a dental problem in the last 6 months where you did not have access to dental care?: No Was dental information given to patient?: Patient has dentist HPI HPI Comments History of Present Illness Details 58-year-old male presents for hypertensi on, diabetes, and hyperlipidemia follow-up He admits to taking his medications as prescribed without adverse reactions He notes that he continues to see his therapist and psychiatrist He states that he generally eats healthy and sleeps well. He walks routinely for exercise He has not gotten lipid pane, PSA, urine microalbumin lab work done but will do so today He offers no complaints and denies acute symptoms at this time [facility] Medical History Schizophrenia Anxiety Diabetes High cholesterol High blood pressure Sinusitis COPD (chronic obstructive pulmonary disease) Asthma Surgical History No pertinent past surgical history Family History Other Mental health disorder Social History Housing: Apartment Patient Tobacco Use Status: Former Tobacco user e-Cigarette/Vaping Use: Never Used service: Yes Current occupational status: employed 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 1. Little interest or pleasure in doing things: not at all 2. Feeling down, depressed, or hopeless: not at all 3. Trouble falling or staying asleep, or sleeping too much: several days 4. Feeling tired or having little energy: several days 5. Poor appetite or overeating: not at all 6. Feeling bad about yourself - or that you are a failure or have let yourself or your family down: not at all 7. Trouble concentrating on things, such as reading the newspaper or watching television: not at all 8. Moving or speaking so slowly that other people could have noticed. Or the opposite - being so fidgety or restless that you have been moving around a lot more than usual: not at all 9. Thoughts that you would be better off or of hurting yourself in some way: not at all Total score: 2 20855 - PHQ-9 Billing: Yes Source: Developed by Drs. Jorge Caraballo, Izabela Bejarano, Biju Vaughn and colleagues, with an educational saba from [employer]. Thrive Questionnaire Date Thrive assessed: 12/29/23 I am a: Patient What is your living situation today?: I have a steady place to live Within the past 12 months, did the food you bought not last and you didn't have the money to get more?: Often true Within the past 12 months, did you worry whether your food would run out before you got money to buy more?: Often true Do you have trouble paying for medicines?: Yes Do you have trouble getting transportation to medical appointments?: No Do you have trouble paying your heating and electricity bill?: No Do you have trouble taking care of your child, family member or friend?: No Do you have trouble with day-to-day activities such as bathing, preparing meals, shopping, managing finances, etc.?: No Are you currently unemployed and looking for a job?: No Are you interested in more education?: Yes Please select the resources that you would like help with: Education Currently or been in a relationship where the following occur: No concerns reported THRIVE Score: 2 AUDIT C Alcohol Use Questionnaire (AUDIT-C) 1. How often do you have a drink containing alcohol?: 2-3 times a week 2. How many drinks containing alcohol do you have on a typical day when you are drinking?: 1 or 2 3. How often do you have six or more drinks on one occasion?: Never Total Score: 3 KARLO-7 AMB Questionnaire KARLO-7 Date KARLO - 7 assessed: 04/11/23 Feeling nervous, anxious, or on edge: 0 = Not at all Not being able to stop or control worryin = Not at all Worrying too much about different things: 0 = Not at all Trouble relaxin = Several days Being so restless that it is hard to sit still: 1 = Several days Becoming easily annoyed or irritable: 0 = Not at all Feeling afraid as if something awful might happen: 0 = Not at all Total KARLO-7 score (0-4 normal; 5-9 mild; 10-14 moderate; 15-21 severe): 2 Source: Developed by Drs. Jorge Caraballo, Izabela Bejarano, Biju Vaughn and colleagues, with an educational saba from [employer]. Review of Systems Const Details: Const Denies chills, Denies fatigue, Denies fever(s), Denies headache(s) and Denies weakness ENT Denies dizziness and Denies headache(s) Card Denies chest pain, Denies lightheadedness, Denies dyspnea and Denies other (Palpitations) Resp Denies cough, Denies dyspnea, Denies wheezing and Denies other ( shortness of breath) GI Denies abdominal pain, Denies melena, Denies hematochezia, Denies change in bowel habits, Denies dyspepsia and Denies nausea Denies hematuria and Denies dysuria Musc Denies abnormal gait, Denies myalgias, Denies arthralgias, Denies numbness and Denies tingling Skin/Breast Denies rash, Denies unusual bruising and Denies wounds Neuro Denies abnormal gait, Denies dizziness, Denies headache(s), Denies memory loss, Denies numbness, Denies Sensory deficit (Neuro), Denies tingling and Denies weakness Psych Denies anxiety, Denies depression, Denies memory loss Endo Denies cold intolerance, Denies fatigue, Denies heat intolerance, Denies polydipsia and Denies polyuria Aller/Immun Denies wheezing Physical exam (Primary Care) Vital Signs: Last Vital Signs Temp 97.8 F 12/29/23 09:52 Pulse 82 12/29/23 09:52 Resp 16 12/29/23 09:52 BP 112/74 12/29/23 09:52 Pulse Ox 96 12/29/23 09:52 Oxygen Delivery Method Room Air 12/29/23 09:52 BMI result Body Mass Index 33.2 Tobacco/Smoking Status: Tobacco use Status Tobacco use date assessed 12/29/23 12/29/23 09:52 Patient Tobacco Use Status Former Tobacco user 12/29/23 09:46 e-Cigarette/Vaping Use Never Used 12/29/23 09:46 PHQ-9: PHQ-9 Score PHQ-9: Total score 2 12/29/23 09:52 Thrive Assessment: Date of Thrive Assessment Date Thrive assessed 12/29/23 12/29/23 09:52 Currently or been in a relationship where the following occur: No concerns reported Const Other: General: no acute distress and well developed Nutritional Appearance: well nourished Orientation/consciousness: patient oriented x3 HENMT Head: Yes normocephalic and Yes atraumatic Eyes General: appearance normal, both eyes and all related structures Pupils: Equal, round and reactive pupils present EOM: EOMs intact bilaterally Resp Effort & Inspection: normal respiratory effort Auscultation: clear to auscultation bilaterally Cardio Rate: regular rate Rhythm: regular rhythm Heart sounds: S1 normal heart sound present, S2 normal heart sound present, no gallops, no murmurs and no rubs GI Palpation (GI): No Abdominal aortic bruit present, Soft to palpation, nontender, No hepatosplenomegaly present and No Rebound tenderness present Auscultation: normal bowel sounds General: Yes no CVA tenderness Back/Spine/Pelvis Back: no CVA tenderness Extrem General: Yes normal to inspection, No edema and No calf tenderness Skin General: warm and dry. Normal skin color. Normal skin turgor Neuro General: patient oriented x3, gait normal and no focal neuro deficit Cranial nerves: Yes Equal, round and reactive pupils present Cognition (Neuro): normal cognition Gait exam (Neuro): Normal gait present Sensory Exam: No Sensory deficit (Neuro) Psych Appearance: grossly normal Affect: normal affect Attitude: cooperative Thought process: Normal thought process present Results AMB Hemoglobin A1c AMB Hemoglobin A1c 6.1 % Last Edit by Sharon Gerard MA on 12/29/23 10:37 Coding Level of Care Code Est Pt Level 3 (58705) Diagnoses High blood pressure I10 Diabetes E11.9 Assessment & Plan Assessment & Plan (1) High blood pressure: Code(s): I10 - Essential (primary) hypertension Category: Medical Plan: Blood pressure is 112/74, within goal of less than 130/80 Continue current treatment regimen Low-sodium diet encouraged Follow-up in 3 months or sooner with symptoms or concerns Verbalized understanding and agreed with treatment plan (2) Diabetes: Code(s): E11.9 - Type 2 diabetes mellitus without complications Category: Medical Plan: A1c today is 6.1%, within goal of less than 7.0%. Previous A1c was 5.9% Continue current treatment regimen ADA diet and routine exercise encouraged Follow-up in 3 months Verbalized understanding and agreed with the treatment plan Orders: Orders AMB Hemoglobin A1c Today Z13.9 - Encounter for screening, unspecified
[2023-12-29 09:52] VITALS: BP 112/74; PULSE 82; RESP 16; TEMP 36.6; O2SAT 96; BMI 33.2
== END 2023-12-29 10:30 | disposition home or self-care (01) ==
PROVIDERS: PCP Nurse Practitioner Family; Visit Provider Nurse Practitioner Family
DX: I10 Essential (primary) hypertension (principal); E11.9 Type 2 diabetes mellitus without complications; Z13.9 Encounter for screening, unspecified

== ENCOUNTER → 2023-12-29 09:09 | Outpatient (BNVA) | payer OTHER, SELFPAY | PROVIDERS: PCP Nurse Practitioner Family; Visit Provider Nurse Practitioner Family | DX: I10 Essential (primary) hypertension (principal); E11.9 Type 2 diabetes mellitus without complications | CPT/HCPCS: 83036; 96127; 99212 ==

== ENCOUNTER 2023-12-29 10:33 | Outpatient (REF) | payer OTHER, SELFPAY ==
[2023-12-29 14:33] LABS: Appearance Urine Clear; Color Urine Yellow; Glucose Urine UA Negative (Negative); Leukocyte Esterase Urine Trace (Negative); Nitrite Urine Negative (Negative); PH 6.5 (5.0-9.0); Specific Gravity - Urine 1.015 (1.005-1.025); UMIC TRIGGER UACC YES; Urine Blood Negative (Negative); Urine Ketones Negative (Negative); Urine Protein Trace mg/dL (Neg-Trace)
[2023-12-29 14:39] LABS: Bacteria Urine None Seen (None Seen); Hyaline Casts Urine 0-2 /LPF (0-2); RBC Urine 0-2 /HPF (0-2); Squamous Epithelial Cell Urine 0-2 /HPF (0-2); WBC Urine 0-5 /HPF (0-5)
[2023-12-29 14:55] LABS: Cholesterol 185 mg/dL (<200); HDL Cholesterol 41 mg/dL (>40); LDL Cholesterol Calculated 98 mg/dL (<100); Triglycerides 233 mg/dL (<150)
[2023-12-29 15:02] LABS: Creatinine Urine 162.55 mg/dL; Microalbum/Creatinine Ratio Ur 55.3 ug/mg cr (<30)
[2024-01-07 23:48] LABS: PSA, Ultra Sensitive 8.48 ng/mL
== END 2023-12-29 10:34 | disposition home or self-care (01) ==
LOC: HO.WFDLDS 10:33
PROVIDERS: Visit Provider Nurse Practitioner Family
DX: Z00.00 Encounter for general adult medical examination without abnormal findings (principal); Z12.5 Encounter for screening for malignant neoplasm of prostate; E78.00 Pure hypercholesterolemia, unspecified; N40.0 Benign prostatic hyperplasia without lower urinary tract symptoms; R30.0 Dysuria; E11.9 Type 2 diabetes mellitus without complications
CPT/HCPCS: 36415; 80061; 81001; 82043; 82570; 84153

== ENCOUNTER 2024-04-29 10:37 | Outpatient (AMB) | payer OTHER, SELFPAY ==
--- NOTE | 2024-04-29 10:38 | A.OFFPC_ITS ---
Vital Signs 04/29/24 10:46 04/29/24 11:12 Height 5 ft 10 in Weight 233 lb BMI 33.4 BP 134/98 H 126/80 Blood Pressure Location Lt brachial Rt brachial Position Sitting Sitting Respiration 16 Pulse 65 Pulse Source Pulse Oximeter Temp 98.2 F Temp Source Oral Pulse Oximetry (%) 96 Oxygen Delivery Method Room Air Intake Visit Reasons: 3 mos HTN, DM Intake Note: patient here for follow up on HTN and DM c/o of both legs hurting Marketing Production Manager Required: No Allergies aspirin Adverse Reaction (Severe, Verified 04/29/24 10:50) Anaphylaxis Penicillins Adverse Reaction (Severe, Verified 04/29/24 10:50) Anaphylaxis Medication List - Last Reconciled 04/29/24 by Nayeli Petersen CNP amlodipine 10 mg PO DAILY blood sugar diagnostic (FreeStyle Lite Strips) As directed TID blood-glucose meter (FreeStyle Lite Meter kit) As directed docusate sodium 100 mg PO BID fluocinonide 0.05% topical fluvoxamine 100 mg PO BEDTIME glipizide ER 10 mg PO BID hydrocortisone 2.5% appl topical ketoconazole 2% topical lancets (FreeStyle Lancets) As directed lisinopril 5 mg PO DAILY lorazepam 0.5 mg PO BID PRN metformin ER 1,000 mg PO BID multivitamin 1 tab PO DAILY olanzapine 20 mg PO BEDTIME ondansetron HCl 4 - 8 mg PO Q8H PRN oxybutynin chloride ER 10 mg PO DAILY tamsulosin mg PO DAILY Tobacco use date assessed: 04/29/24 Dental Screening Dental Screen Date: 04/29/24 Did you have a dental visit in the last 12 months?: Yes Did you have a dental problem in the last 6 months where you did not have access to dental care?: No Was dental information given to patient?: Patient has dentist HPI HPI Comments History of Present Illness Details 58-year-old male presents for hypertensi on and diabetes follow-up. He admits to taking his medications as prescribed without adverse reactions. He reports soreness his bilateral lower extremity, from below his knees to his feet, for the past couple of days. He walks long distances routinely. His work requires prolonged standing for several hours. He denies injury or trauma. He continues to follow-up with his psychiatrist. 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 1. Little interest or pleasure in doing things: several days 2. Feeling down, depressed, or hopeless: not at all 3. Trouble falling or staying asleep, or sleeping too much: not at all 4. Feeling tired or having little energy: several days 5. Poor appetite or overeating: not at all 6. Feeling bad about yourself - or that you are a failure or have let yourself or your family down: several days 7. Trouble concentrating on things, such as reading the newspaper or watching television: not at all 8. Moving or speaking so slowly that other people could have noticed. Or the opposite - being so fidgety or restless that you have been moving around a lot more than usual: several days 9. Thoughts that you would be better off or of hurting yourself in some way: not at all Total score: 4 Depression Screening Interpretation: Negative Depression Screening Done: Yes 43546 - PHQ-9 Billing: Yes Source: Developed by Drs. Jorge Caraballo, Izabela Bejarano, Biju Vaughn and colleagues, with an educational saba from [employer]. Thrive Questionnaire Date Thrive assessed: 04/29/24 I am a: Patient What is your living situation today?: I have a steady place to live Within the past 12 months, did the food you bought not last and you didn't have the money to get more?: Often true Within the past 12 months, did you worry whether your food would run out before you got money to buy more?: Never true Do you have trouble paying for medicines?: No Do you have trouble getting transportation to medical appointments?: No Do you have trouble paying your heating and electricity bill?: No Do you have trouble taking care of your child, family member or friend?: No Do you have trouble with day-to-day activities such as bathing, preparing meals, shopping, managing finances, etc.?: No Are you currently unemployed and looking for a job?: No Are you interested in more education?: No Please select the resources that you would like help with: None Currently or been in a relationship where the following occur: Controlled Emotionally THRIVE Score: 2 AUDIT C Alcohol Use Questionnaire (AUDIT-C) 1. How often do you have a drink containing alcohol?: 2-3 times a week 2. How many drinks containing alcohol do you have on a typical day when you are drinking?: 1 or 2 3. How often do you have six or more drinks on one occasion?: Never Total Score: 3 KARLO-7 AMB Questionnaire KARLO-7 Date KARLO - 7 assessed: 04/29/24 Feeling nervous, anxious, or on edge: 0 = Not at all Not being able to stop or control worryin = Not at all Worrying too much about different things: 0 = Not at all Trouble relaxin = Several days Being so restless that it is hard to sit still: 0 = Not at all Becoming easily annoyed or irritable: 0 = Not at all Feeling afraid as if something awful might happen: 0 = Not at all Total KARLO-7 score (0-4 normal; 5-9 mild; 10-14 moderate; 15-21 severe): 1 Source: Developed by Drs. Jorge Caraballo, Izabela Bejarano, Biju Vaughn and colleagues, with an educational saba from [employer]. KARLO-7 Assessment Billing KARLO-7 Assessment Tool: KARLO-7 Assessment 30553 Review of Systems Const Details: Const Denies chills, Denies fatigue, Denies fever(s), Denies headache(s) and Denies weakness ENT Denies dizziness and Denies headache(s) Card Denies chest pain, Denies lightheadedness, Denies dyspnea and Denies other (Palpitations) Resp Denies cough, Denies dyspnea, Denies wheezing and Denies other ( shortness of breath) GI Denies abdominal pain, Denies melena, Denies hematochezia, Denies change in bowel habits, Denies dyspepsia and Denies nausea Denies hematuria and Denies dysuria Musc Reports legs soreness, Denies abnormal gait, Denies arthralgias, Denies numbness and Denies tingling Skin/Breast Denies rash, Denies unusual bruising and Denies wounds Neuro Denies abnormal gait, Denies dizziness, Denies headache(s), Denies memory loss, Denies numbness, Denies Sensory deficit (Neuro), Denies tingling and Denies weakness Psych Denies anxiety, Denies depression, Denies memory loss Endo Denies cold intolerance, Denies fatigue, Denies heat intolerance, Denies polydipsia and Denies polyuria Aller/Immun Denies wheezing Physical exam (Primary Care) Vital Signs: Last Vital Signs Temp 98.2 F 04/29/24 10:46 Pulse 65 04/29/24 10:46 Resp 16 04/29/24 10:46 BP 134/98 H 04/29/24 10:46 Pulse Ox 96 04/29/24 10:46 Oxygen Delivery Method Room Air 04/29/24 10:46 BMI result Body Mass Index 33.4 Tobacco/Smoking Status: Tobacco use Status Tobacco use date assessed 04/29/24 04/29/24 10:46 Patient Tobacco Use Status Former Tobacco user 04/29/24 10:40 e-Cigarette/Vaping Use Never Used 04/29/24 10:40 PHQ-9: PHQ-9 Score PHQ-9: Total score 4 04/29/24 10:46 Depression Screening Interpretation: Negative Thrive Assessment: Date of Thrive Assessment Date Thrive assessed 04/29/24 04/29/24 10:46 Currently or been in a relationship where the following occur: Controlled Emotionally Const Other: General: no acute distress and well developed Nutritional Appearance: well nourished Orientation/consciousness: patient oriented x3 HENMT Head: Yes normocephalic and Yes atraumatic Eyes General: appearance normal, both eyes and all related structures Pupils: Equal, round and reactive pupils present EOM: EOMs intact bilaterally Resp Effort & Inspection: normal respiratory effort Auscultation: clear to auscultation bilaterally Cardio Rate: regular rate Rhythm: regular rhythm Heart sounds: S1 normal heart sound present, S2 normal heart sound present, no gallops, no murmurs and no rubs GI Palpation (GI): No Abdominal aortic bruit present, Soft to palpation, nontender, No hepatosplenomegaly present and No Rebound tenderness present Auscultation: normal bowel sounds General: Yes no CVA tenderness Back/Spine/Pelvis Back: no CVA tenderness Cervical Spine: cervical ROM normal and No Cervical spine tenderness Thoracic/Lumbar Spine: thoraco-lumbar ROM normal, No pain with thoraco-lumbar ROM, No thoracic spinal tenderness and No lumbar spinal tenderness Extrem General: Yes normal to inspection, No edema and No calf tenderness Skin General: warm and dry. Normal skin color. Normal skin turgor Neuro General: patient oriented x3, gait normal and no focal neuro deficit Cranial nerves: Yes Equal, round and reactive pupils present Cognition (Neuro): normal cognition Gait exam (Neuro): Normal gait present Sensory Exam: No Sensory deficit (Neuro) Psych Appearance: grossly normal Affect: normal affect Attitude: cooperative Thought process: Normal thought process present Results AMB Hemoglobin A1c AMB Hemoglobin A1c 6.6 % Last Edit by Sharon Gerard on 04/29/24 11:02 Coding Level of Care Code Est Pt Level 4 (81102) Diagnoses High blood pressure I10 Diabetes E11.9 Muscle soreness M79.10 Laboratory tests ordered as part of a complete physical exam (CPE) Z00.00 Additional Codes KARLO-7 Assessment Billing - KARLO-7 Assessment Tool: KARLO-7 Assessment 90839 ([id number]) PHQ-9 - 62701 - PHQ-9 Billing: Yes ([id number]) Assessment & Plan Assessment & Plan (1) High blood pressure: Code(s): I10 - Essential (primary) hypertension Category: Medical Plan: Resting blood pressure is 126/80, slightly above goal of less than 130/80. Continue current treatment regimen. Low-sodium diet encouraged. We will continue to monitor. Advised to get lab work and follow-up in a month for an extended physical exam. Verbalized understanding and agreed with treatment plan. (2) Diabetes: Code(s): E11.9 - Type 2 diabetes mellitus without complications Category: Medical Plan: A1c today is 6.6%, within goal of less than 7.0%. Previous A1c was 6.1%. Continue current treatment regimen. ADA diet and routine exercise encouraged. Routine exercise encouraged. Will recheck A1c in 3 months. Verbalized understanding and agreed with treatment plan. (3) Muscle soreness: Code(s): M79.10 - Myalgia, unspecified site Category: Medical Plan: Bilateral lower extremity soreness for the past few days. No overt injury or trauma. Steady gait noted. Avoid prolonged walking or standing. Tylenol as prescribed. Warm/cool compresses encouraged. Follow-up with worsening or new symptoms. Verbalized understanding and agreed with treatment plan. (4) Laboratory tests ordered as part of a complete physical exam (CPE): Code(s): Z00.00 - Encounter for general adult medical examination without abnormal findings Category: Medical Plan: Fasting labs ordered as part of a complete physical exam. Advised to fast for at least 10 hours before getting labs drawn. May drink water Verbalized understanding and agreed with treatment plan. Orders: Orders AMB Hemoglobin A1c Today Z13.9 - Encounter for screening, unspecified Comprehensive Lucile. Panel Fast Today Z00.00 - Encounter for general adult medical examination without abnormal findings Lipid Panel Today Z00.00 - Encounter for general adult medical examination without abnormal findings TSH reflex Free T4 Today Z00.00 - Encounter for general adult medical examination without abnormal findings UA CC w/rflx Micro + Cult Today Z00.00 - Encounter for general adult medical examination without abnormal findings Microalbumin, Random (w Creat) Today Z00.00 - Encounter for general adult medi diana examination without abnormal findings Complete Blood Count Auto Diff Today Z00.00 - Encounter for general adult medical examination without abnormal findings PSA, Ultra Sensitive Today Z00.00 - Encounter for general adult medical examination without abnormal findings Medications: New acetaminophen ER (Tylenol 8 Hour) 650 mg PO Q12H PRN 30 tabs 0RF pain
[2024-04-29 10:46] VITALS: BP 134/98; PULSE 65; RESP 16; TEMP 36.8; O2SAT 96; BMI 33.4
[2024-04-29 11:12] VITALS: BP 126/80
--- OUTSIDE RECORDS SUMMARY | 2024-04-29 11:46 | XMS_ITS | Encounter Summary ---
Author Organization [facility] Address [address] [place] [address] Care Team Providers Care Skidder Loader Name Role Phone Unavailable Primary Care Provider Unavailabl e Encounter Details Date Type Department Care Team (Late st Contact Info) Description 02/13/2024 Lab Requisition [facility] - Main Lab [address] [facility] [place] [address] Richi Strange MD [address] [facility] [address] [place] [address] Frequency of micturition Social History Tobacco Use Types Packs/Day Years Used Date Smoking Tobacco: Never Assessed Sex and Gender Information Value Date Recorded Sex Assigned at Not on file Legal Sex Male 1:59 PM EST Gender Identity Not on file Sexual Orientation Not on file documented as of this encounter Plan of Treatment Not on file documented as of this encounter Procedures Procedure Name Priority Date/Time Associated Diagnosis Comments CULTURE URINE Routine 02/13/2024 2:01 PM EST Frequency of micturition documented in this encounter Results * (ABNORMAL) Culture urine (02/13/2024 2:01 PM EST) Culture, Urine 10,000-49,000 CFU/mL Pseudomonas aeruginosa(A) JOSÉ MIGUEL 02/17/2024 10:26 AM EST [facility] ([facility] Comment: This is an edited result. Previous organism was Gram negative bacilli on 02/16/2024 at 1124 EST. Urine Urine specimen from urethra / Unknown Non-blood Collection / Unknown 02/13/2024 2:01 PM EST 02/15/2024 9:13 AM EST Narrative Organism Antibiotic Method Susceptibility Pseudomonas aeruginosa Piperacillin/Tazobactam JOSÉ MIGUEL <=4 ug/ml: Susceptible Pseudomonas aeruginosa Ceftazidime JOSÉM IGUEL 1 ug/ml: Susceptible Pseudomonas aeruginosa Cefepime JOSÉ MIGUEL 1 ug/ml: Susceptible Pseudomonas aeruginosa Meropenem JOSÉ MIGUEL <=0.25 ug/ml: Susceptible Pseudomonas aeruginosa Amikacin JOSÉ MIGUEL 2 ug/ml: Susceptible Pseudomonas aeruginosa Ciprofloxacin JOSÉ MIGUEL <=0.06 ug/ml: Susceptible Pseudomonas aeruginosa Levofloxacin JOSÉ MIGUEL 0.25 ug/ml: Susceptible us Richi Strange MD LAB MICROBIOLOGY - GENERAL ORDER STEVEN Final Result [facility] ([facility]) [facility] [address] [place] [address], [place] [phone] documented in this encounter Visit Diagnoses Diagnosis Frequency of micturition Urinary frequency documented in this encounter
--- OUTSIDE RECORDS SUMMARY | 2024-04-29 11:46 | XMS_ITS | Clinical Summary ---
Author Organization [address] [facility] Address [address] [place] [address] Phone Care Team Providers Care Dry Mixer Name Role Phone Unavailable Primary Care Provider Unavailabl e Encounters Date Type Department Care Team Description 04/02/2024 Lab Requisition [facility] Lab [address] [place] [address] Cass Sena DO Dysuria 02/13/2024 Lab Requisition [facility] Lab [address] [place] [address] Richi Strange MD Frequency of micturition from Last 3 Months Social History Tobacco Use Types Packs/Day Years Used Date Smoking Tobacco: Never Assessed Sex and Gender Information Value Date Recorded Sex Assigned at Not on file Legal Sex Male 1:59 PM EST Gender Identity Not on file Sexual Orientation Not on file Plan of Treatment Health Maintenance Due Date Last Done Comments DTaP,Tdap,and Td Vaccines (1 - Tdap) 1985 Hepatitis B Vaccines (1 of 3 - 19+ 3-dose series) 1985 Pneumococcal Vaccine: 50+ Ye ars (1 of 1 - PCV) 2016 Zoster Vaccines (1 of 2) 2016 COVID-19 Vaccine (2023-2 5 season) 2023 Influenza Vaccine (#1) 2023 Cholesterol Screening (Lipid Panel) 02/13/2024 Colorectal Cancer Screening: Colonoscopy 02/13/2024 Depression Screening 02/13/2024 HIV Screening 02/13/2024 Hepatitis C Screening 02/13/2024 Medicare Annual Wellness Visit 02/13/2024 Social Influencers of Health Screening 02/13/2024 HIB Vaccines Aged Out No longer eligi ble based on patient's age to complete this topic HPV Vaccines Aged Out No longer eligi ble based on patient's age to complete this topic Hepatitis A Vaccines Aged Out No long er eligible based on patient's age to complete this topic IPV Vaccines Aged Out No longer eligi ble based on patient's age to complete this topic MMR Vaccines Aged Out No longer eligi ble based on patient's age to complete this topic Meningococcal ACWY Vaccine Aged Out N o longer eligible based on patient's age to complete this topic Meningococcal B Vacine Aged Out No lo nger eligible based on patient's age to complete this topic Pneumococcal Vaccine: Pediat rics (0 to 5 Years) and At-Risk Patients (6 to 64 Years) Aged Out No longer eligible b ased on patient's age to complete this topic RSV Immunization Patients Un velia 20 months Aged Out No longer eligible b ased on patient's age to complete this topic Varicella Vaccines Aged Out No longer eligible based on patient's age to complete this topic Procedures Procedure Name Priority Date/Time Associated Diagnosis Comments CULTURE URINE Routine 04/02/2024 12:00 AM EST Dysuria CULTURE URINE Routine 02/13/2024 2:01 PM EST Frequency of micturition from Last 3 Months Results * (ABNORMAL) Culture urine (04/02/2024 12:00 AM EST) Only the most recent of2 resultswithin the time period is included. Culture, Urine 50,000-100,000 CFU/mL Escherichia coli(A) JOSÉ MIGUEL 04/04/2024 7:43 AM EST [facility] Comment: Additional colony types present in insignificant amounts. This is an edited result. Previous organism was Gram negative bacilli on 04/03/2024 at 0905 EST. Urine Urine specimen from urethra / Unknown 04/02/2024 04/02/2024 5:14 PM EST Narrative Organism Antibiotic Method Susceptibility Escherichia coli Amoxicillin/Clavulanate JOSÉ MIGUEL <=2 ug/ml: Susceptible Escherichia coli Ampicillin/Sulbactam JOSÉ MIGUEL <=2 ug/ml: Susceptible Escherichia coli Piperacillin/Tazobactam JOSÉ MIGUEL <=4 ug/ml: Susceptible Escherichia coli Cefazolin (Urine) JOSÉ MIGUEL <=1 ug/ml: Susceptible Escherichia coli Cefoxitin JOSÉ MIGUEL <=4 ug/ml: Susceptible Escherichia coli Ceftazidime JOSÉ MIGUEL <=0.5 ug/ml: Susceptible Escherichia coli Ceftriaxone JOSÉ MIGUEL <=0.25 ug/ml: Susceptible Escherichia coli Cefepime JOSÉ MIGUEL <=0.12 ug/ml: Susceptible Escherichia coli Meropenem JOSÉ MIGUEL <=0.25 ug/ml: Susceptible Escherichia coli Amikacin JOSÉ MIGUEL 4 ug/ml: Susceptible Escherichia coli Gentamicin JOSÉ MIGUEL <=1 ug/ml: Susceptible Escherichia coli Ciprofloxacin JOSÉ MIGUEL >=4 ug/ml: Resistant Escherichia coli Levofloxacin JOSÉ MIGUEL >=8 ug/ml: Resistant Escherichia coli Nitrofurantoin JOSÉ MIGUEL <=16 ug/ml: Susceptible Escherichia coli Trimethoprim/Sulfamethoxazole JOSÉ MIGUEL <=20 ug/ml: Susceptible us Cass Sena DO LAB MICROBIOLOGY - GENERAL ORDER STEVEN Final Result [facility] HOSPITAL LAB [address] [place] [address], from Last 3 Months Insurance [facility] MEDIC[facility] Member Subscriber Plan / Payer (Ef fective 2022-Present) Name:Florentin Mckoy Relation to Subscriber:Self Name:Florentin Mckoy Payer ID:[id number] Group ID:[id number] Type:Not on file Address: [address] [place] [address]
--- OUTSIDE RECORDS SUMMARY | 2024-04-29 11:46 | XMS_ITS | Encounter Summary ---
Author Organization [facility] Address [address] [place] [address] Care Team Providers Care Lead Javascript Engineer Name Role Phone Unavailable Primary Care Provider Unavailabl e Encounter Details Date Type Department Care Team (Late st Contact Info) Description 04/02/2024 Lab Requisition [facility] - Main Lab [address] [facility] [place] [address] Cass Sena DO [address] [place] [phone] Dysuria Social History Tobacco Use Types Packs/Day Years [...] URINE Routine 04/02/2024 12:00 AM EST Dysuria documented in this encounter Results * (ABNORMAL) Culture urine (04/02/2024 12:00 AM EST) Culture, Urine 50,000-100,000 CFU/mL Escherichia coli(A) JOSÉ MIGUEL 04/04/2024 7:43 AM EST [facility] Comment: Additional colony types present in [...] MICROBIOLOGY - GENERAL ORDER STEVEN Final Result [facility] ([facility]) [facility] [address] [place] [address], [place] [phone] documented in this encounter Visit Diagnoses Diagnosis Dysuria documented in this encounter
== END 2024-04-29 11:06 | disposition home or self-care (01) ==
PROVIDERS: PCP Nurse Practitioner Family; Visit Provider Nurse Practitioner Family
DX: I10 Essential (primary) hypertension (principal); E11.9 Type 2 diabetes mellitus without complications; M79.10 Myalgia, unspecified site; Z00.00 Encounter for general adult medical examination without abnormal findings; Z13.9 Encounter for screening, unspecified

== ENCOUNTER 2024-04-29 11:10 | Outpatient (REF) | payer OTHER, SELFPAY ==
--- OUTSIDE RECORDS SUMMARY | 2024-04-29 12:32 | XMS_ITS | Encounter Summary ---
Author Organization [facility] Address [address] [place] [address] Care Team Providers Care Card Hanger Name Role Phone Unavailable Primary Care Provider Unavailabl e Encounter Details Date Type Department Care Team (Late st Contact Info) Description 02/13/[address] [facility] - Main Lab [address] [facility] [place] [address] Richi Strange MD [address] [facility] [address] [place] [address] Frequency of micturition Social History [...] aeruginosa(A) JOSÉ MIGUEL 02/17/2024 10:26 AM EST [facility] ([facility] Comment: This is an edited result. Previous organism was Gram negative bacilli on 02/16/2024 at 1124 EST. Urine Urine specimen from urethra / Unknown Non-blood Collection / Unknown 02/13/2024 2:01 PM EST 02/15/2024 9:13 AM EST Narrative Organism Antibiotic Method Susceptibility Pseudomonas aeruginosa Piperacillin/Tazobactam JOSÉ MIGUEL <=4 ug/ml: Susceptible Pseudomonas aeruginosa Ceftazidime JOSÉ MIGUEL 1 ug/ml: Susceptible Pseudomonas aeruginosa Cefepime JOSÉ MIGUEL 1 ug/ml: Susceptible Pseudomonas aeruginosa Meropenem JOSÉ MIGUEL <=0.25 ug/ml: Susceptible Pseudomonas aeruginosa Amikacin JOSÉ MIGUEL 2 ug/ml: Susceptible Pseudomonas aeruginosa Ciprofloxacin JOSÉ MIGUEL <=0.06 ug/ml: Susceptible Pseudomonas aeruginosa Levofloxacin JOSÉ MIGUEL 0.25 ug/ml: Susceptible us Richi Strange MD LAB MICROBIOLOGY - GENERAL ORDER STEVEN Final Result [facility] ([facility]) [facility] [address] [place] [address], [place] [phone] documented in this encounter Visit Diagnoses Diagnosis Frequency of micturition Urinary frequency documented in this encounter
--- OUTSIDE RECORDS SUMMARY | 2024-04-29 12:32 | XMS_ITS | Encounter Summary ---
Author Organization [facility] Address [address] [place] [address] Care Team Providers Care Evp Head [employer] Experience Strategy Name Role Phone Unavailable Primary Care Provider Unavailabl e Encounter Details Date Type Department Care Team (Late st Contact Info) Description 04/02/2024 Lab Requisition [facility] - Main Lab [address] [facility] [place] [address] Cass Sena DO [address] [place] [phone] Dysuria Social History Tobacco Use Types Packs/Day [...] coli(A) JOSÉ MIGUEL 04/04/2024 7:43 AM EST [facility] ([facility] Comment: Additional colony types present [...] MICROBIOLOGY - GENERAL ORDER STEVEN Final Result [facility] ([facility]) [facility] [address] [place] [address], [place] [phone] documented in this encounter Visit Diagnoses Diagnosis Dysuria documented in this encounter
--- OUTSIDE RECORDS SUMMARY | 2024-04-29 12:32 | XMS_ITS | Clinical Summary ---
Author Organization [address] [facility] Address [address] [place] [address] Phone Care Team Providers Care [employer] Diagnostic Technician Name Role Phone Unavailable Primary Care Provider Unavailabl e Encounters Date Type Department Care Team Description 04/02/2024 Lab Requisition [facility] [address] [place] [address] Cass Sena DO Dysuria 02/13/2024 Lab Requisition [facility] [address] [place] [address] Richi Strange MD Frequency of [...] coli(A) JOSÉ MIGUEL 04/04/2024 7:43 AM EST [facility] Comment: Additional colony types present in [...] MICROBIOLOGY - GENERAL ORDER STEVEN Final Result [facility] [address] [place] [address], from Last 3 Months Insurance [facility] Member Subscriber Plan / Payer (Ef fective 2022-Present) Name:Florentin Mckoy Relation to Subscriber:Self Name:Florentin Mckoy Payer ID:[id number] Group ID:[id number] Type:Not on file Address: [address] [place] [id number]
[2024-04-29 14:12] LABS: MANUAL DIFF FLAG NO
[2024-04-29 14:12] LABS: Appearance Urine Cloudy; Color Urine Dark Yellow; Glucose Urine UA Negative (Negative); Leukocyte Esterase Urine Small (1+) (Negative); Nitrite Urine Negative (Negative); PH 5.5 (5.0-9.0); Specific Gravity - Urine >= 1.030 (1.005-1.025); UMIC TRIGGER UACC YES; Urine Blood Negative (Negative); Urine Ketones Trace mg/dL (Negative); Urine Protein Trace mg/dL (Neg-Trace)
[2024-04-29 14:20] LABS: Bacteria Urine None Seen (None Seen); Calcium Oxalate Crystals Urine Present; Hyaline Casts Urine 0-2 /LPF (0-2); RBC Urine 0-2 /HPF (0-2); Squamous Epithelial Cell Urine 0-2 /HPF (0-2); UACC Culture Trigger YES; WBC Urine 0-5 /HPF (0-5)
[2024-04-29 14:21] LABS: Basophils Percent Auto 0.6 % (0-2); Eosinophils Percent Auto 0.4 % (0-4); Hematocrit 43.6 % (42.0-52.0); Imm Gran Abs Auto 0.03 X10*3/uL (0.00-0.03); Imm Gran Pct Auto 0.4 % (0.0-0.4); Lymphocytes Absolute Auto 1.8 X10*3/uL (1.2-4.9); Lymphocytes Percent Auto 25.6 % (20-40); Mean Corpuscular HGB Conc 32.1 g/dl (31.0-36.0); Mean Corpuscular Hemoglobin 29.4 pg (27.0-33.0); Mean Corpuscular Volume 91.6 fL (80.0-98.0); Mean Platelet Volume 11.9 fL (9.4-12.4); Monocytes Absolute Auto 0.4 X10*3/uL (0.1-1.2); Monocytes Percent Auto 5.1 % (2-11); Neutrophils Absolute Auto 4.7 x10*3/uL (2.0-8.3); Neutrophils Percent Auto 67.9 % (45-73); Platelet Count 155 X10*3/uL (160-400); Red Blood Count 4.76 X10*6/uL (4.60-5.80); White Blood Count 6.9 X10*3/uL (4.8-10.8)
[2024-04-29 14:42] LABS: Alanine Aminotransferase 28 U/L (0-40); Albumin Level 4.5 g/dL (3.5-5.0); Alkaline Phosphatase 95 U/L (39-117); Anion Gap 11 (12-20); Aspartate Amino Transferase 18 U/L (5-37); Bilirubin Total 0.4 mg/dL (0.0-1.0); Blood Urea Nitrogen 16 mg/dL (9-16); Calcium 9.8 mg/dL (8.4-10.2); Carbon Dioxide 31 mmol/L (22-29); Chloride 107 mmol/L (96-108); Cholesterol 173 mg/dL (<200); Estimated Glomerular Filt Rate > 60; Glucose Fasting 131 mg/dL (60-99); HDL Cholesterol 46 mg/dL (>40); LDL Cholesterol Calculated 97 mg/dL (<100); Potassium 3.7 mmol/L (3.3-5.1); Sodium 145 mmol/L (135-145); Total Protein 7.6 g/dL (6.5-8.0); Triglycerides 150 mg/dL (<150)
[2024-04-29 14:42] LABS: Creatinine Urine 252.23 mg/dL; Microalbum/Creatinine Ratio Ur 17.4 ug/mg cr (<30)
[2024-04-29 14:49] LABS: TSH reflex Free T4 2.37 uIU/mL (0.32-4.0)
[2024-05-05 22:08] LABS: PSA, Ultra Sensitive 5.26 ng/mL
== END 2024-04-29 11:11 | disposition home or self-care (01) ==
LOC: HO.WFDLDS 11:10
PROVIDERS: Visit Provider Nurse Practitioner Family
DX: I10 Essential (primary) hypertension (principal); E11.9 Type 2 diabetes mellitus without complications; M79.10 Myalgia, unspecified site; Z00.00 Encounter for general adult medical examination without abnormal findings; Z12.5 Encounter for screening for malignant neoplasm of prostate; R82.90 Unspecified abnormal findings in urine
CPT/HCPCS: 36415; 80053; 80061; 81001; 82043; 82570; 83036; 84153; 84443; 85025; 87086; 96127; 99212